=== PATIENT | female | born 1955 | race Caucasian/White ===

== ENCOUNTER 2018-04-05 18:41 | Emergency (ER) | payer MEDICARE, OTHER ==
[~2018-04-05] VITALS: Ht 167.6 cm; Wt 68.0 kg
[~2018-04-05 18:41] MED LIST: IBUP800 PO; SERT50 PO
[2018-04-05] MEDS ORDERED: Ultram50 MG PO (19:49)
== END 2018-04-05 20:00 | disposition home or self-care (01) ==
LOC: ER 18:41
DX: S82.65XA Nondisplaced fracture of lateral malleolus of left fibula, initial encounter for closed fracture (principal); F17.200 Nicotine dependence, unspecified, uncomplicated; Z79.899 Other long term (current) drug therapy; X50.1XXA Overexertion from prolonged static or awkward postures, initial encounter; Y93.01 Activity, walking, marching and hiking; Y92.828 Other wilderness area as the place of occurrence of the external cause
CPT/HCPCS: 29515; 73610; 99283

== ENCOUNTER → 2019-02-13 | Outpatient (CLI) | payer MEDICARE, OTHER ==
[~2019-02-13] MED LIST changes: +Ultram50 MG PO
[2019-02-17 15:06] LABS: HPV 16 Negative (Negative); HPV 18 Negative (Negative); HPV OTHER HR TYPES Negative (Negative)
== END | disposition home or self-care (01) ==
LOC: LAB 17:18 → LAB SHORT 17:18
PROVIDERS: Nurse Practitioner Family
DX: Z01.419 Encounter for gynecological examination (general) (routine) without abnormal findings (principal)
CPT/HCPCS: 87624; G0145

== ENCOUNTER → 2021-01-20 | Outpatient (CLI) | payer OTHER ==
[~2021-01-20] MED LIST changes: +LISI5 PO; +Xopenex Hfa15 GM INH
== END | disposition home or self-care (01) ==
LOC: LAB 13:36 → LAB SHORT 13:36
DX: R39.9 Unspecified symptoms and signs involving the genitourinary system (principal)
CPT/HCPCS: 87077; 87086; 87186

== ENCOUNTER → 2022-01-24 | Outpatient (CLI) | payer OTHER | END | disposition home or self-care (01) | LOC: LAB SHORT 17:28 | DX: R30.9 Painful micturition, unspecified (principal) | CPT/HCPCS: 87077; 87086; 87186 ==

== ENCOUNTER → 2022-07-11 | Outpatient (CLI) | payer OTHER | END | disposition home or self-care (01) | LOC: LAB SHORT 17:21 | DX: B35.1 Tinea unguium (principal) | CPT/HCPCS: 87210; 88305; 88312 ==

== ENCOUNTER → 2023-05-20 | Outpatient (CLI) | payer OTHER | END | disposition home or self-care (01) | LOC: LAB 13:10 → LAB SHORT 13:10 | DX: J02.9 Acute pharyngitis, unspecified (principal) | CPT/HCPCS: 87081 ==

== ENCOUNTER 2023-06-07 10:43 | Day surgery (SDC) | payer OTHER ==
[2023-06-07] VITALS (10 sets, daily range): BP systolic 134–172; BP diastolic 73–87
[~2023-06-07] VITALS: Ht 165.1 cm; Wt 75.3 kg
[~2023-06-07 10:43] MED LIST changes: +ASPI81CH PO; +EZET10 PO; +FISH OIL 1,2001 EAC7 PO; +LOSARTAN POTAS100 M1 PO; +METO25ER PO; +MULVITA PO; +OMEP20ER PO; +TRAM50 PO
--- NOTE | 2023-06-07 11:28 | NUR ---
Ambulatory in Day Surgery History, Chart, Medications and Allergies reviewed before start of procedure. Pre-Op teaching done. Pt verbalizes understanding. Patient States Post-Procedure ride home has been arranged.
--- NOTE | 2023-06-07 12:28 | NUR ---
[facility] COMPLETED A LEFT INTERSCALENE BLOCK.
--- NOTE | 2023-06-07 14:19 | NUR ---
Discharge instructions reviewed with patient. Patient verbalizes understanding. Copy given to patient to take home. PT UP TO VOID, STEADY ON FEET. Discharged via wheelchair to private car for ride home. PT ABLE TO WIGGLE FINGERS TO LEFT SHOULDER, DRSC/D/I, SLING IN PLACE. CAP REFILL LESS THAN 3 SEC, MIN SWELLING TO FINGERS. PT DENIES PAIN.
== END 2023-06-07 14:16 | disposition home or self-care (01) ==
LOC: ORSCMMR 10:43 → ORD 12:30 → ORSCMMR 14:16
PROVIDERS: Orthopaedic Surgery
PROC: 0PSD34Z Reposition Left Humeral Head with Internal Fixation Device, Percutaneous Approach (ICD-10-PCS; principal; 2023-06-07 11:30)
DX: S42.212A Unspecified displaced fracture of surgical neck of left humerus, initial encounter for closed fracture (principal); I10 Essential (primary) hypertension; F17.210 Nicotine dependence, cigarettes, uncomplicated; J44.9 Chronic obstructive pulmonary disease, unspecified; B19.20 Unspecified viral hepatitis C without hepatic coma; K21.9 Gastro-esophageal reflux disease without esophagitis; Z79.82 Long term (current) use of aspirin; Z79.899 Other long term (current) drug therapy
CPT/HCPCS: C1769; J0690; J1100; J2250; J2405; J2704; J3010; J7120

== ENCOUNTER → 2023-08-01 | Outpatient (CLI) | payer OTHER ==
[2023-08-02 08:51] LABS: Candida species (DNA Probe) Negative (NEGATIVE); G. vaginalis (DNA Probe) Negative (NEGATIVE); T. vaginalis (DNA Probe) Negative (NEGATIVE)
== END ==
LOC: LAB SHORT 13:18 → LAB 13:18
PROVIDERS: Registered Nurse Community Health
DX: N89.8 Other specified noninflammatory disorders of vagina (principal)
CPT/HCPCS: 87070; 87205; 87480; 87510; 87660

== ENCOUNTER → 2023-09-04 | Outpatient (CLI) | payer OTHER | LOC: LAB SHORT 12:51 → LAB 12:51 | DX: N89.8 Other specified noninflammatory disorders of vagina (principal) | CPT/HCPCS: 87070; 87077; 87186; 87205 ==

== ENCOUNTER → 2023-09-25 | Outpatient (CLI) | payer OTHER ==
[2023-09-25 15:58] LABS: Candida species (DNA Probe) Negative (NEGATIVE); G. vaginalis (DNA Probe) Negative (NEGATIVE); T. vaginalis (DNA Probe) Negative (NEGATIVE)
== END | disposition home or self-care (01) ==
LOC: LAB 11:15 → LAB SHORT 11:15
PROVIDERS: Registered Nurse Community Health
DX: N89.8 Other specified noninflammatory disorders of vagina (principal)
CPT/HCPCS: 87070; 87077; 87186; 87205; 87480; 87510; 87660

== ENCOUNTER → 2023-10-17 | Outpatient (CLI) | payer OTHER | LOC: LAB SHORT 12:17 → LAB 12:17 | DX: N89.8 Other specified noninflammatory disorders of vagina (principal) | CPT/HCPCS: 87070; 87077; 87186; 87205 ==

== ENCOUNTER → 2023-12-04 | Outpatient (CLI) | payer OTHER ==
[2023-12-05 13:05] LABS: G. vaginalis (DNA Probe) Negative (NEGATIVE); T. vaginalis (DNA Probe) Negative (NEGATIVE)
[2023-12-05 13:06] LABS: Candida species (DNA Probe) Negative (NEGATIVE)
== END | disposition home or self-care (01) ==
LOC: LAB 15:05 → LAB SHORT 15:05
PROVIDERS: Advanced Practice Midwife
DX: N76.0 Acute vaginitis (principal)
CPT/HCPCS: 87480; 87510; 87660

== ENCOUNTER → 2024-02-28 | Outpatient (CLI) | payer OTHER ==
[2024-02-29 07:18] LABS: Bacterial Vaginosis PCR Negative (NEGATIVE); Candida Group, PCR NOT DETECTED (NOT DETECT); Candida glabrata-krusei, PCR NOT DETECTED (NOT DETECT)
== END | disposition home or self-care (01) ==
LOC: LAB 18:42 → LAB SHORT 18:42
PROVIDERS: Registered Nurse Community Health
DX: N89.8 Other specified noninflammatory disorders of vagina (principal)
CPT/HCPCS: 87070; 87077; 87186; 87205; 87481; 87661; 87801

== ENCOUNTER → 2024-04-30 | Outpatient (CLI) | payer OTHER ==
[2024-04-30 19:51] LABS: Bacterial Vaginosis PCR Negative (NEGATIVE); Candida Group, PCR NOT DETECTED (NOT DETECT); Candida glabrata-krusei, PCR NOT DETECTED (NOT DETECT)
[2024-05-03 05:49] LABS: APTIMA MEDIA TYPE MultiTest Swab; C. TRACHOMATIS BY TMA Negative (Negative); N. GONORRHOEAE BY TMA Negative (Negative); SPECIMEN SOURCE Vaginal; T. VAGINALIS BY TMA Negative (Negative)
== END ==
LOC: LAB SHORT 13:53 → LAB 13:53
PROVIDERS: Registered Nurse Community Health
DX: N89.8 Other specified noninflammatory disorders of vagina (principal)
CPT/HCPCS: 87070; 87077; 87186; 87205; 87481; 87491; 87591; 87661; 87801

== ENCOUNTER 2024-05-20 06:09 | Day surgery (SDC) | payer OTHER ==
[~2024-05-20] VITALS: Ht 167.6 cm; Wt 75.5 kg
[2024-05-20] MEDS ORDERED: Acetaminophen 500 MG Tab ONE (06:38)
[2024-05-20] MEDS ORDERED: Lactated Ringer's 1,000 ML IV ONE ×3 (06:39→09:00)
[2024-05-20] MEDS ORDERED: NS 50 ML IV ONE (06:39)
[2024-05-20] MEDS ORDERED: CeFAZolin Sodium 2,000 MG VIAL ONE (06:39)
[2024-05-20] MEDS ORDERED: OxyCODONE HCL 10 MG TABCR ONE (06:39)
[2024-05-20] MEDS ORDERED: NS IV SCH (06:40)
[2024-05-20] MEDS ORDERED: Ropivacaine 0.5% HCl/Pf 123.125 MG,EPINEPHrine HCL 0.25 MG,Ketorolac Tromethamine 15 MG... INFIL SCH (06:40)
[2024-05-20] MEDS ORDERED: TRANEXAMIC ACID IV SCH (06:40)
[2024-05-20] MEDS ORDERED: AMLO10 (06:48)
[2024-05-20] MEDS ORDERED: MELO7.5 (06:49)
[2024-05-20] MEDS ORDERED: Acetaminophen325 M1 (06:51)
[2024-05-20] MEDS ORDERED: Chlorhexidine Mouth Care 15 ML UDC MT SCH (07:15)
[2024-05-20] MEDS ORDERED: Albuterol 2.5 MG/3 ML VIAL ONE (07:23)
[2024-05-20] MEDS ORDERED: EPINEPhrine HCl 1 MG/ML 1ML Amp ONE (07:42)
[2024-05-20] MEDS ORDERED: Bupivacaine 0.5% HCl 5 MG/ML 30MLVIAL ONE (07:42)
[2024-05-20] MEDS ORDERED: Dexamethasone Sod Phos 10 MG/ML 1ML VIAL ONE (07:42)
[2024-05-20] MEDS ORDERED: Midazolam HCl 1MG / ML 2ML Vial ONE (07:43)
[2024-05-20] MEDS ORDERED: propofoL 20 ML IV ONE (08:12)
[2024-05-20] MEDS ORDERED: Vancomycin HCl 1000 MG ADDvantage ONE (08:17)
--- NOTE | 2024-05-20 08:50 | NUR ---
05/20/24 0850 Temi Fernandez FIRST DOSE OF TXA GIVEN IN THE OR BY DR JEFF AT 0824.
[2024-05-20] MEDS ORDERED: ePHEDrine Sulfate 50 MG/ML 1ML Injection ONE (08:52)
--- NOTE | 2024-05-20 11:26 | NUR ---
05/20/24 1126 SHELLI HERNANDEZ 2ND [id number] IVPB @ 1124. PT VOIDED PRIOR WOUT ISSUE-500ML CLEAR COPIUS URINE OUTPUT. END NOTE ORSC.RDS
[2024-05-20 11:28] VITALS: BP 134/77
[2024-05-20] MEDS ORDERED: TraMADol HCl 50 MG Tab ONE (11:51)
== END 2024-05-20 12:02 | disposition home or self-care (01) ==
LOC: ORSCSDS 06:09
PROVIDERS: Orthopaedic Surgery
PROC: 0RRK00Z Replacement of Left Shoulder Joint with Reverse Ball and Socket Synthetic Substitute, Open Approach (ICD-10-PCS; principal; 2024-05-20 07:30)
DX: S42.212K Unspecified displaced fracture of surgical neck of left humerus, subsequent encounter for fracture with nonunion (principal); I10 Essential (primary) hypertension; J44.9 Chronic obstructive pulmonary disease, unspecified; F17.210 Nicotine dependence, cigarettes, uncomplicated; G47.33 Obstructive sleep apnea (adult) (pediatric); Z79.899 Other long term (current) drug therapy; Z79.82 Long term (current) use of aspirin; Z85.118 Personal history of other malignant neoplasm of bronchus and lung
CPT/HCPCS: 87071; 87075; 87205; A9270; C1713; C1776; J0171; J0690; J0735; J1100; J1885; J2250; J2704; J2795; J3370; J7120

== ENCOUNTER 2024-05-26 16:01 | Emergency (ER) | payer OTHER ==
[~2024-05-26] VITALS: Ht 165.1 cm; Wt 74.8 kg
[~2024-05-26 16:01] MED LIST changes: +AMLO10 PO; +Acetaminophen325 M1; +MELO7.5
[2024-05-26 17:05] LABS: BASOPHILS ABSOLUTE AUTO 0.04 K/mm3 (0.00-0.23); BASOPHILS PERCENT AUTO 1 % (0-2); EOSINOPHILS ABSOLUTE AUTO 0.25 K/mm3 (0.00-0.68); EOSINOPHILS PERCENT AUTO 3 % (0-6); Hematocrit 27.7 % (33.0-51.0); Hemoglobin 9.5 g/dL (11.5-16.0); IMMATURE GRAN ABSOLUTE AUTO 0.03 K/mm3 (0.00-0.10); IMMATURE GRAN PERCENT AUTO 0 % (0-1); LYMPHOCYTES ABSOLUTE AUTO 1.11 K/mm3 (0.84-5.20); LYMPHOCYTES PERCENT AUTO 14 % (21-46); MONOCYTES ABSOLUTE AUTO 1.22 K/mm3 (0.16-1.47); MONOCYTES PERCENT AUTO 15 % (4-13); Mean Corpuscular HGB 33.9 pg (26.0-34.0); Mean Corpuscular HGB Conc 34.3 g/dL (31.5-36.5); Mean Corpuscular Volume 99 fL (80-100); Mean Platelet Volume 8.4 fL (9.1-12.4); NEUTROPHILS ABSOLUTE AUTO 5.53 K/mm3 (1.96-9.15); NEUTROPHILS PERCENT AUTO 68 % (41-73); Platelet Count 280 K/mm3 (150-400); RDW Coefficient Variation 12.6 % (11.7-14.2); RDW Standard Deviation 45.5 fL (35.1-46.3); White Blood Cell Count 8.18 K/mm3 (4.00-11.30)
[2024-05-26 17:35] LABS: Albumin, Blood 2.5 g/dL (3.4-5.0); Albumin/Globulin Ratio 0.6 (0.8-1.8); Bilirubin, Total 0.2 mg/dL (0.1-1.0); Bun/Creatinine Ratio 9.5 (12.0-20.0); Calcium, Blood 8.8 mg/dL (8.5-10.1); Creatinine, Blood 0.42 mg/dL (0.40-1.00); Globulin, Blood 3.9 g/dL (2.2-4.0); Potassium, Blood 3.6 mmol/L (3.5-5.5); Total Protein, Blood 6.4 g/dL (6.4-8.2)
[2024-05-26 18:15] VITALS: BP 144/70
== END 2024-05-26 18:48 | disposition left against medical advice (07) ==
LOC: ER 16:01
PROVIDERS: Emergency Medicine
DX: R20.2 Paresthesia of skin (principal); F17.210 Nicotine dependence, cigarettes, uncomplicated; Z79.82 Long term (current) use of aspirin; Z79.899 Other long term (current) drug therapy; Z88.5 Allergy status to narcotic agent; Z88.6 Allergy status to analgesic agent; Z53.29 Procedure and treatment not carried out because of patient's decision for other reasons
CPT/HCPCS: 70450; 80053; 85025; 93005; 93010; 99285-25

== ENCOUNTER 2024-05-29 12:41 | Emergency (ER) | payer OTHER ==
[~2024-05-29] VITALS: Ht 165.1 cm; Wt 74.8 kg
[2024-05-29] MEDS ORDERED: Pantoprazole Sodium 40 MG Injection IV ONE (14:45)
[2024-05-29 14:50] LABS: Calcium, Blood 9.2 mg/dL (8.5-10.1); Creatinine, Blood 0.4 mg/dL (0.40-1.00); Potassium, Blood 4.2 mmol/L (3.5-5.5)
[2024-05-29] MEDS ORDERED: NS 1,000 ML IV SCH (14:50)
[2024-05-29] MEDS ORDERED: ALBU90OI (15:01)
[2024-05-29] MEDS ORDERED: Loratadine10 MG PO (15:02)
[2024-05-29 15:34] LABS: BASOPHILS ABSOLUTE AUTO 0.06 K/mm3 (0.00-0.23); BASOPHILS PERCENT AUTO 1 % (0-2); EOSINOPHILS PERCENT AUTO 2 % (0-6); Hematocrit 31.5 % (33.0-51.0); IMMATURE GRAN ABSOLUTE AUTO 0.06 K/mm3 (0.00-0.10); IMMATURE GRAN PERCENT AUTO 1 % (0-1); International Normalized Ratio 0.98; LYMPHOCYTES ABSOLUTE AUTO 1.82 K/mm3 (0.84-5.20); LYMPHOCYTES PERCENT AUTO 20 % (21-46); MONOCYTES ABSOLUTE AUTO 1.38 K/mm3 (0.16-1.47); MONOCYTES PERCENT AUTO 15 % (4-13); Mean Corpuscular HGB 33.6 pg (26.0-34.0); Mean Corpuscular HGB Conc 34.9 g/dL (31.5-36.5); Mean Corpuscular Volume 96 fL (80-100); Mean Platelet Volume 8.5 fL (9.1-12.4); NEUTROPHILS ABSOLUTE AUTO 5.83 K/mm3 (1.96-9.15); NEUTROPHILS PERCENT AUTO 62 % (41-73); Platelet Count 511 K/mm3 (150-400); Prothrombin Time Results 10.5 Sec (9.7-11.5); RDW Coefficient Variation 12.7 % (11.7-14.2); RDW Standard Deviation 44.8 fL (35.1-46.3); Red Blood Cell Count 3.27 M/mm3 (3.80-5.20); White Blood Cell Count 9.35 K/mm3 (4.00-11.30)
[2024-05-29 15:49] LABS: Influenza A, PCR NEGATIVE (NEGATIVE); Influenza B, PCR NEGATIVE (NEGATIVE); Resp Syncytial Virus, PCR NEGATIVE (NEGATIVE); SARS-Cov-2 (COVID-19) PCR, MMC NEGATIVE (NEGATIVE)
[2024-05-29 15:59] LABS: Source, Urine Straight Cath
[2024-05-29 16:01] LABS: Albumin, Blood 2.9 g/dL (3.4-5.0); Albumin/Globulin Ratio 0.7 (0.8-1.8); Bilirubin, Total 0.4 mg/dL (0.1-1.0); Globulin, Blood 4.3 g/dL (2.2-4.0); Total Protein, Blood 7.2 g/dL (6.4-8.2)
[2024-05-29 16:09] LABS: Appearance, Urine Clear (Clear); Bilirubin, Urine Neg (Neg); Blood, Urine Neg (Neg); Glucose Qualitative, Urine Neg (Neg); Ketones, Urine Neg (Neg); Leukocyte Esterase, Urine 1+ (Neg); Nitrite, Urine Neg (Neg); Protein, Urine Neg (Neg); Specific Gravity, Urine 1.005 (1.003-1.022); Urobilinogen, Urine NORM (Normal)
[2024-05-29 16:15] LABS: Color, Urine Pale Yellow (P-Yellow)
[2024-05-29 16:16] LABS: Bacteria Few /hpf; Red Blood Cells, Urine Not Seen /hpf (0-2); Squamous Epithelial Cells Not Seen /hpf (Few)
[2024-05-29 19:15] VITALS: BP 144/81
== END 2024-05-29 19:32 | disposition home or self-care (01) ==
LOC: ER 12:41
PROVIDERS: Emergency Medicine; Student in an Organized Health Care Education/Training Program
DX: R10.9 Unspecified abdominal pain (principal); Z88.8 Allergy status to other drugs, medicaments and biological substances; Z88.5 Allergy status to narcotic agent; Z79.899 Other long term (current) drug therapy; Z79.82 Long term (current) use of aspirin; F43.10 Post-traumatic stress disorder, unspecified; F17.210 Nicotine dependence, cigarettes, uncomplicated
CPT/HCPCS: 0241U; 71045; 74177; 80053; 81001; 84484; 85025; 85610; 85730; 86850; 86900; 86901; 87077; 87086; 87186; 93005; 93010; 96361; 96374-59; 99285-25; C9113; J7030; Q9967

== ENCOUNTER 2024-08-20 13:58 | Day surgery (SDC) | payer OTHER ==
[~2024-08-20] VITALS: Ht 165.1 cm; Wt 75.7 kg
[~2024-08-20 13:58] MED LIST changes: +ALBU90OI; +Atropine Sulfate 0.1 MG/ML 10ML SYR ONE; +Glycopyrrolate 0.2 MG/ML 1MLVIAL ONE; +Lactated Ringer's 1,000 ML IV ONE; +Lidocaine 2% 5 ML SDV ONE; +Lidocaine HCl/Pf 1% 5 ML VIAL ONE; +Loratadine10 MG PO; +Methylene Blue 1% 100 MG/10 ML VIAL ONE; +Ondansetron HCl 2 MG / ML 2ML Vial ONE; +ePHEDrine Sulfate 50 MG/ML 1ML Injection ONE
[2024-08-20] MEDS ORDERED: ACETAZOLAMIDE (14:37)
[2024-08-20] MEDS ORDERED: ONDA4ODT (14:37)
[2024-08-20] MEDS ORDERED: Lactated Ringer's 1,000 ML IV ONE (15:16)
[2024-08-20] MEDS ORDERED: Midazolam HCL 1 MG/ML 5MLVIAL ONE (15:19)
[2024-08-20] MEDS ORDERED: FentaNYL Citrate 50 MCG/ML 2 ML Injection ONE (15:19)
[2024-08-20] MEDS ORDERED: propofoL 50 ML IV ONE (15:19)
--- NOTE | 2024-08-20 15:36 | NUR ---
08/20/24 1536 Jeanna De Souza PT. DENIES PAIN.
[2024-08-20 16:46] VITALS: BP 143/78
== END 2024-08-20 16:46 | disposition home or self-care (01) ==
LOC: ORSCSDS 13:58
PROVIDERS: Specialist
PROC: 0DJD8ZZ Inspection of Lower Intestinal Tract, Via Natural or Artificial Opening Endoscopic (ICD-10-PCS; principal; 2024-08-20 15:00)
DX: Z12.11 Encounter for screening for malignant neoplasm of colon (principal); K57.30 Diverticulosis of large intestine without perforation or abscess without bleeding; K64.8 Other hemorrhoids; Z86.0101 Personal history of adenomatous and serrated colon polyps; Z87.891 Personal history of nicotine dependence; F43.10 Post-traumatic stress disorder, unspecified; Z79.899 Other long term (current) drug therapy; G47.33 Obstructive sleep apnea (adult) (pediatric); I10 Essential (primary) hypertension; J44.9 Chronic obstructive pulmonary disease, unspecified; Z85.118 Personal history of other malignant neoplasm of bronchus and lung; Z79.82 Long term (current) use of aspirin
CPT/HCPCS: J0461; J2001; J2003; J2250; J2405; J2704; J3010; J7120; Q9968

== ENCOUNTER → 2024-12-15 | Outpatient (CLI) | payer OTHER ==
[~2024-12-15] MED LIST changes: +ACETAZOLAMIDE; -Atropine Sulfate 0.1 MG/ML 10ML SYR ONE; -Glycopyrrolate 0.2 MG/ML 1MLVIAL ONE; -Lactated Ringer's 1,000 ML IV ONE; -Lidocaine 2% 5 ML SDV ONE; -Lidocaine HCl/Pf 1% 5 ML VIAL ONE; -Methylene Blue 1% 100 MG/10 ML VIAL ONE; +ONDA4ODT; -Ondansetron HCl 2 MG / ML 2ML Vial ONE; -ePHEDrine Sulfate 50 MG/ML 1ML Injection ONE
== END | disposition home or self-care (01) ==
LOC: LAB SHORT 13:41 → LAB 13:41
DX: N76.0 Acute vaginitis (principal); B96.89 Other specified bacterial agents as the cause of diseases classified elsewhere
CPT/HCPCS: 87070; 87077; 87186; 87205

== ENCOUNTER 2025-03-20 13:41 | Emergency (ER) | payer OTHER ==
[~2025-03-20] VITALS: Ht 165.1 cm; Wt 77.1 kg
[2025-03-20 14:21] LABS: BASOPHILS ABSOLUTE AUTO 0.06 K/mm3 (0.00-0.23); BASOPHILS PERCENT AUTO 1 % (0-2); EOSINOPHILS ABSOLUTE AUTO 0.14 K/mm3 (0.00-0.68); EOSINOPHILS PERCENT AUTO 2 % (0-6); Hematocrit 40.3 % (33.0-51.0); IMMATURE GRAN ABSOLUTE AUTO 0.02 K/mm3 (0.00-0.10); IMMATURE GRAN PERCENT AUTO 0 % (0-1); LYMPHOCYTES ABSOLUTE AUTO 2.09 K/mm3 (0.84-5.20); LYMPHOCYTES PERCENT AUTO 24 % (21-46); MONOCYTES ABSOLUTE AUTO 1.18 K/mm3 (0.16-1.47); MONOCYTES PERCENT AUTO 14 % (4-13); Mean Corpuscular HGB Conc 34.7 g/dL (31.5-36.5); Mean Corpuscular Volume 98 fL (80-100); NEUTROPHILS ABSOLUTE AUTO 5.14 K/mm3 (1.96-9.15); NEUTROPHILS PERCENT AUTO 60 % (41-73); Platelet Count 349 K/mm3 (150-400); RDW Standard Deviation 47.2 fL (35.1-46.3); Red Blood Cell Count 4.12 M/mm3 (3.80-5.20); White Blood Cell Count 8.63 K/mm3 (4.00-11.30)
[2025-03-20 14:42] LABS: Albumin, Blood 3.5 g/dL (3.4-5.0); Bilirubin, Total 0.3 mg/dL (0.1-1.0); Bun/Creatinine Ratio 23.5 (12.0-20.0); Calcium, Blood 9.6 mg/dL (8.5-10.1); Creatinine, Blood 0.47 mg/dL (0.40-1.00); Globulin, Blood 3.6 g/dL (2.2-4.0); Potassium, Blood 4.3 mmol/L (3.5-5.5); Total Protein, Blood 7.1 g/dL (6.4-8.2)
[2025-03-20 16:21] LABS: Source, Urine Clean Catch
[2025-03-20 16:23] LABS: Appearance, Urine Clear (Clear); Bilirubin, Urine Neg (Neg); Blood, Urine Neg (Neg); Glucose Qualitative, Urine Neg (Neg); Ketones, Urine Neg (Neg); Leukocyte Esterase, Urine 1+ (Neg); Nitrite, Urine Neg (Neg); Protein, Urine Neg (Neg); Urobilinogen, Urine NORM (Normal)
[2025-03-20 16:28] LABS: Color, Urine Pale Yellow (P-Yellow)
[2025-03-20 16:29] LABS: Bacteria Few /hpf; Red Blood Cells, Urine 0-2 /hpf (0-2); Squamous Epithelial Cells Few /hpf (Few)
[2025-03-20 16:30] VITALS: BP 145/83
== END 2025-03-20 16:19 | disposition home or self-care (01) ==
LOC: ER 13:41
PROVIDERS: Student in an Organized Health Care Education/Training Program
DX: N82.3 Fistula of vagina to large intestine (principal); F17.210 Nicotine dependence, cigarettes, uncomplicated; F43.10 Post-traumatic stress disorder, unspecified; Z79.82 Long term (current) use of aspirin; Z79.899 Other long term (current) drug therapy; Z88.5 Allergy status to narcotic agent
CPT/HCPCS: 74177; 80053; 81001; 85025; 87086; 99284-25; Q9967

== ENCOUNTER 2025-05-31 10:20 | Day surgery (SDC) | payer OTHER ==
[~2025-05-31] VITALS: Ht 167.6 cm; Wt 74.4 kg
[2025-05-31] MEDS ORDERED: ALEN70 (10:55)
[2025-05-31] MEDS ORDERED: AMLO10 (10:56)
[2025-05-31] MEDS ORDERED: ERGO400 (10:56)
[2025-05-31] MEDS ORDERED: EZET10 (10:56)
[2025-05-31] MEDS ORDERED: OXYB5 (10:57)
[2025-05-31] MEDS ORDERED: AMLODIPINE-OLM1 EAC5 (10:57)
--- NOTE | 2025-05-31 11:47 | NUR ---
05/31/25 1147 LOIDA BEAULIEU POOR PREP - EXAM WAS COMPLETED TO TRANSVERSE COLON WITHOUT ISSUE. PT NEEDED EXAM PRIOR TO COLOVAGINAL FISTULA SURGERY. LAST EXAM WAS 08/2024, NO NEED TO REACH CECUM PER MD ALVES PT WAS JUST EXAMINED.
[2025-05-31 12:19] VITALS: BP 148/71
--- NOTE | 2025-05-31 12:23 | NUR ---
05/31/25 1223 Kurt Patterson PT C/O 07/21 ABD PAIN. PAIN PRESENT ON ADMISSION. PT WORK OF BREATHING NORMAL, VS NORMAL/ STABLE. PT STATES WILL TAKE PAIN MEDICATION AFTER DISCHARGE. PT UP TO TOILET WITH WHEELCHAIR WITH NO ISSUES. PT DRINKING COFFEE NO ISSUES.
== END 2025-05-31 12:32 | disposition home or self-care (01) ==
LOC: ORSCSDS 10:20
PROVIDERS: Internal Medicine Gastroenterology
PROC: 0DJD8ZZ Inspection of Lower Intestinal Tract, Via Natural or Artificial Opening Endoscopic (ICD-10-PCS; principal; 2025-05-31 11:45)
DX: R93.3 Abnormal findings on diagnostic imaging of other parts of digestive tract (principal); R11.2 Nausea with vomiting, unspecified; K57.30 Diverticulosis of large intestine without perforation or abscess without bleeding; Z86.0101 Personal history of adenomatous and serrated colon polyps; F43.10 Post-traumatic stress disorder, unspecified; M81.0 Age-related osteoporosis without current pathological fracture; Z85.118 Personal history of other malignant neoplasm of bronchus and lung; G47.33 Obstructive sleep apnea (adult) (pediatric); I10 Essential (primary) hypertension; J44.9 Chronic obstructive pulmonary disease, unspecified; Z86.19 Personal history of other infectious and parasitic diseases; F17.210 Nicotine dependence, cigarettes, uncomplicated; Z79.82 Long term (current) use of aspirin; Z79.899 Other long term (current) drug therapy
CPT/HCPCS: J2704; J7120

== ENCOUNTER 2025-09-10 08:01 | Inpatient (IN) | payer OTHER ==
[2025-09-10] VITALS (15 sets, daily range): BP systolic 91–134; BP diastolic 53–77
[~2025-09-10] VITALS: Ht 165.1 cm; Wt 69.8 kg
[~2025-09-10 08:01] MED LIST changes: +ALEN70 PO; +AMLODIPINE-OLM1 EAC5; +CALTRATE 600-D1 EACH PO; +CIPR500 PO; +CeFAZolin Sodium 2,000 MG in NS 100 ML IV SCH; +Chlorhexidine Mouth Care 15 ML UDC MT SCH; +Cyclobenzaprine5 MG PO; +ERGO400; +IBUP400 PO; -ONDA4ODT; +ONDA4ODT PO; +OXYB5 PO; +Ropivacaine 0.5% HCl/Pf 123.125 MG,EPINEPHrine HCL 0.25 MG,Ketorolac Tromethamine 15 MG... INFIL SCH; +Tranexamic Acid 100 ML IV SCH
[2025-09-10] MEDS ORDERED: FISH OIL 1,0001 EA10 PO (09:00)
[2025-09-10] MEDS ORDERED: Midazolam HCl 1MG / ML 2ML Vial ONE (09:25)
[2025-09-10] MEDS ORDERED: EpiNEPhrine 1 MG/1 ML 1ML Vial ONE (09:27)
[2025-09-10] MEDS ORDERED: Bupivacaine HCl 0.25% 30 ML Injection ONE (09:27)
[2025-09-10] MEDS ORDERED: FentaNYL Citrate 50 MCG/ML 2 ML Injection ONE (10:01)
[2025-09-10] MEDS ORDERED: Rocuronium Bromide 10 MG/ML 5ML Injection IV ONE ×2 (10:02→11:23)
[2025-09-10] MEDS ORDERED: FLU VACC TS2025(65UP)/MF59C/PF 45 MCG/0.5 ML SYRINGE IM SCH (10:05)
[2025-09-10] MEDS ORDERED: Magnesium Hydroxide Conc 10 ML UDC PO PRN (10:05)
[2025-09-10] MEDS ORDERED: HYDROmorphone HCl/Pf 1MG SYR IV PRN ×3 (10:05→10:45)
[2025-09-10] MEDS ORDERED: Prochlorperazine Edisylate 10 mg Vial IV PRN (10:10)
[2025-09-10] MEDS ORDERED: Metoclopramide HCl 5MG / ML 2ML Vial IV PRN (10:10)
[2025-09-10] MEDS ORDERED: Ondansetron HCl 2 MG / ML 2ML Vial IV PRN ×2 (10:10→10:50)
[2025-09-10] MEDS ORDERED: ePHEDrine Sulfate 50 MG/ML 1ML Injection ONE (10:18)
[2025-09-10] MEDS ORDERED: ACET500 PO (10:39)
[2025-09-10] MEDS ORDERED: FentaNYL Citrate 50 MCG/ML 2 ML Injection IV PRN ×2 (10:45→10:50)
[2025-09-10] MEDS ORDERED: Albuterol 2.5 MG/3 ML VIAL INH PRN (10:50)
[2025-09-10] MEDS ORDERED: Ketorolac Tromethamine 15mg Vial IV SCH (12:00)
[2025-09-10] MEDS ORDERED: Sugammadex Sodium 200 MG/2ML SDV (100 MG/ML) ONE (12:10)
[2025-09-10] MEDS ORDERED: Ketorolac Tromethamine 30mg Vial ONE (12:28)
[2025-09-10] MEDS ORDERED: CeFAZolin Sodium 2,000 MG in NS 100 ML IV SCH (16:00)
--- NOTE | 2025-09-10 18:00 | NUR ---
ADMISSION AND SHIFT SUMMARY PATIENT ADMITTED TO SURGICAL FLOOR AFTER SHOULDER SURGERY. PATIENT ABLE TO AMBULATE TO THE BATHROOM WITH STAND BY ASSIST. PATIENT STATES PAIN WELL CONTROLLED AT THIS TIME. PATIENT HAS A HX OF CHRONIC PAIN AND USES TRAMADOL AT HOME. INCISION INTACT WITH DRESSING IN PLACE. ICE TO SHOULDER ORDERED. PT ASSISTED WITH ADJUSTING ARM SLING.
[2025-09-11 04:25] VITALS: BP 125/67
[2025-09-11 04:40] LABS: BASOPHILS ABSOLUTE AUTO 0.01 K/mm3 (0.00-0.23); BASOPHILS PERCENT AUTO 0 % (0-2); EOSINOPHILS ABSOLUTE AUTO 0.00 K/mm3 (0.00-0.68); EOSINOPHILS PERCENT AUTO 0 % (0-6); Hematocrit 29.5 % (33.0-51.0); Hemoglobin 10.1 g/dL (11.5-16.0); IMMATURE GRAN ABSOLUTE AUTO 0.04 K/mm3 (0.00-0.10); IMMATURE GRAN PERCENT AUTO 0 % (0-1); LYMPHOCYTES ABSOLUTE AUTO 1.48 K/mm3 (0.84-5.20); LYMPHOCYTES PERCENT AUTO 11 % (21-46); MONOCYTES ABSOLUTE AUTO 1.56 K/mm3 (0.16-1.47); MONOCYTES PERCENT AUTO 11 % (4-13); Mean Corpuscular HGB Conc 34.2 g/dL (31.5-36.5); Mean Corpuscular Volume 97 fL (80-100); NEUTROPHILS ABSOLUTE AUTO 10.91 K/mm3 (1.96-9.15); NEUTROPHILS PERCENT AUTO 78 % (41-73); NRBC ABSOLUTE 0.00 K/mm3 (0.00-0.02); NRBC Auto 0.0 /100 WBC (0.0-0.2); Platelet Count 348 K/mm3 (150-400); RDW Coefficient Variation 12.2 % (11.7-14.2); RDW Standard Deviation 43.8 fL (35.1-46.3)
[2025-09-11 05:00] LABS: Anion Gap 7.0 mmol/L (3-11); Blood Urea Nitrogen 6.0 mg/dL (8-24); CO2, Blood 25.0 mmol/L (21-32); Calcium, Blood 8.4 mg/dL (8.5-10.1); Chloride, Blood 109.0 mmol/L (98-108); Creatinine, Blood 0.49 mg/dL (0.40-1.00); Glucose, Blood 139.0 mg/dL (70-99); Magnesium, Blood 1.9 mg/dL (1.6-2.4); Potassium, Blood 4.0 mmol/L (3.5-5.5); Sodium, Blood 137.0 mmol/L (136-145)
--- NOTE | 2025-09-11 06:25 | NUR ---
SHIFT SUMMARY PT MEDICATED FOR PAIN WITH SCHEDULED TYLENOL/ TORADOL AND PRN TRAMADOL PER EMAR. PT OOB WITH MINIMAL ASSIST. SLING TO LUE AND DRESSING C/D/I. COLD THERAPY IN PLACE DURING THE NIGHT. PT'S IV SL'D PER ORDER- PT TOLERATING PO'S. PT SLEPT INTERMITTENTLY DURING THE NIGHT.
[2025-09-11 07:12] VITALS: BP 131/74
--- NOTE | 2025-09-11 10:25 | NUR ---
SHIFT/DISCHARGE SUMMARY: PATIENT A/OX4, PLEASANT AND COOPERATIVE c CARE. PATIENT DENIES CP/PRESSURE, SOB, N/V AND DIZZINESS. PATIENT L SHOULDER PRIMEO MESH DRESSING C/D/I, ARM SLING IN PLACED. PATIENT REPORTS PAIN WELL CONTROLLED c CURRENT PAIN REGIMEN. PATIENT RECEIVED SCHEDULED MEDS PER EMAR. VITAL SIGNS REVIEWED. PIV DC'D. PATIENT DISCHARGE HOME. DISCHARGE INSTRUCTIONS PACKET GIVEN TO PATIENT. PATIENT EDUCATED ON ADMITTING DX'S-POST-OP SX, SELF CARE TO PREVENT INFECTION, NWB TO AFFECTED SITE c ARM SLING PLACED AT ALL TIMES, NEW RX AND TO F/U c DR. HULL-ORTHO SURGEON AND PCP. PATIENT VERBALIZED UNDERSTANDING, ALL QUESTIONS WERE ANSWERED. RX WAS FAXED TO [facility]. ALL PERSONAL BELONGINGS WERE SENT c PATIENT. PATIENT LEFT THE ROOM AT 1025 TRANSPORTED VIA BY MEDICARE SPECIALIST TO PATIENT ENTRANCE, RIDES AWAITING FOR HER.
== END 2025-09-11 10:39 | disposition home or self-care (01) | DRG 560 ==
LOC: SURS 08:01
PROVIDERS: Orthopaedic Surgery; ADMIT Anesthesiology
DX: T84.098A Other mechanical complication of other internal joint prosthesis, initial encounter (principal); S42.212K Unspecified displaced fracture of surgical neck of left humerus, subsequent encounter for fracture with nonunion; M97.32XA Periprosthetic fracture around internal prosthetic left shoulder joint, initial encounter; G89.29 Other chronic pain; F32.A Depression, unspecified; I10 Essential (primary) hypertension; G47.33 Obstructive sleep apnea (adult) (pediatric); Z87.81 Personal history of (healed) traumatic fracture; Z98.890 Other specified postprocedural states; Z90.710 Acquired absence of both cervix and uterus; Z87.19 Personal history of other diseases of the digestive system; Z85.118 Personal history of other malignant neoplasm of bronchus and lung; Z87.891 Personal history of nicotine dependence; Z79.899 Other long term (current) drug therapy; Z79.2 Long term (current) use of antibiotics; Z79.82 Long term (current) use of aspirin; Z79.1 Long term (current) use of non-steroidal anti-inflammatories (NSAID); Z23 Encounter for immunization; Y83.8 Other surgical procedures as the cause of abnormal reaction of the patient, or of later complication, without mention of misadventure at the time of the procedure
CPT/HCPCS: 36415; 73030; 80048; 83735; 85025; 87070; 87071; 87075; 87205; 97110; 97161; 97530; A9270; J0169; J0690; J1885; J2250; J2704; J3010; J7120